=== PATIENT | female | born 1980 | race Caucasian/White ===

== ENCOUNTER 2018-11-10 18:24 | Emergency (ER) | payer BC ==
[~2018-11-10] VITALS: Ht 177.8 cm; Wt 131.8 kg
[2018-11-10 18:28] VITALS: BP 119/74; TEMP 99.2
[2018-11-10] MEDS ORDERED: NORCO 325 MG-51 TAB PO (20:22)
[2018-11-10 20:34] VITALS: PULSE 94
== END 2018-11-10 20:35 | disposition home or self-care (01) ==
LOC: COL.ER 18:24
DX: S61.311A Laceration without foreign body of left index finger with damage to nail, initial encounter (principal); M79.7 Fibromyalgia; Z23 Encounter for immunization; I45.89 Other specified conduction disorders; W27.8XXA Contact with other nonpowered hand tool, initial encounter; Y92.009 Unspecified place in unspecified non-institutional (private) residence as the place of occurrence of the external cause
CPT/HCPCS: J2270; J2405

== ENCOUNTER 2018-11-17 08:22 | Emergency (ER) | payer BC ==
[~2018-11-17 08:22] MED LIST: NORCO 325 MG-51 TAB PO
[2018-11-17 08:31] VITALS: BP 141/84; PULSE 86; TEMP 98.5
[2018-11-17] MEDS ORDERED: CEPHALEXIN500 M1 PO (08:48)
== END 2018-11-17 08:54 | disposition home or self-care (01) ==
LOC: COL.ER 08:22
DX: S61.211D Laceration without foreign body of left index finger without damage to nail, subsequent encounter (principal); X58.XXXD Exposure to other specified factors, subsequent encounter

== ENCOUNTER → 2021-03-04 | Outpatient (CLI) | payer OTHER ==
[~2021-03-04] MED LIST changes: +CEPHALEXIN500 M1 PO
== END ==
LOC: COL.RAD 13:45
DX: M48.061 Spinal stenosis, lumbar region without neurogenic claudication (principal); M51.16 Intervertebral disc disorders with radiculopathy, lumbar region; M47.817 Spondylosis without myelopathy or radiculopathy, lumbosacral region

== ENCOUNTER → 2021-12-02 | Outpatient (CLI) | payer OTHER | LOC: COL.RAD 09:00 | DX: M25.551 Pain in right hip (principal); M25.561 Pain in right knee ==

== ENCOUNTER → 2022-02-17 | Outpatient (CLI) | payer OTHER | LOC: MC.RAD 09:54 | DX: Z12.31 Encounter for screening mammogram for malignant neoplasm of breast (principal) ==